=== PATIENT | female | born 2000 | race Two or more races ===

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

== ENCOUNTER 2019-01-28 12:43 | Emergency (ER) | payer OTHER ==
[~2019-01-28] VITALS: Ht 154.9 cm; Wt 48.1 kg
--- NOTE | 2019-01-28 12:49 | NUR ---
ELAYNE DELEON AT BEDSIDE FOR MSE.
--- NOTE | 2019-01-28 13:22 | NUR ---
Patient discharged to home in stable conditon. Written and verbal after care instructions given. Patient verbalizes understanding of instructions. ALL BELONGINGS W/ PT. PT SELF-AMBULATED W/O DIFFICULTY.
[2019-01-28 13:23] VITALS: BP 125/80
== END 2019-01-28 13:24 | disposition home or self-care (01) ==
LOC: ER 12:45
DX: J02.9 Acute pharyngitis, unspecified (principal); R09.82 Postnasal drip
CPT/HCPCS: 36415; 86403; 87070; A4663